=== PATIENT | female | born 1965 | race Caucasian/White ===

== ENCOUNTER 2024-05-22 16:19 | Emergency (ER) | payer BC, OTHER ==
[2024-05-22] MEDS ORDERED: Ketorolac Tromethamine 30 MG (1 mL) VIAL ONE (17:24)
[2024-05-22] MEDS ORDERED: Ondansetron PF 4 MG/2 ML Vial ONE (17:24)
[2024-05-22 17:38] LABS: Prothrombin Time 10.4 sec (9.5-12.1)
[2024-05-22 17:44] LABS: #Basophils 0.09 10x3/uL (0.0-0.2); #Eosinophils 0.47 10x3/uL (0.0-0.5); #Neutrophils 8.77 10x3/uL (1.5-8.4); %Basophils 0.6 % (0.0-2.0); %Eosinophils 3.3 % (0.0-6.0); %Lymphocytes 26.8 % (18.0-47.0); %Monocytes 6.4 % (0.0-10.0); %Neutrophils 62.4 % (40.0-75.0); Hematocrit 37.7 % (34.9-44.5); Hemoglobin 12.5 g/dL (12.0-15.5); Mean Corpuscular HGB CONC 33.2 g/dL (32.0-36.0); Mean Corpuscular Volume 84.5 fL (81.6-98.3); Mean Platelet Volume 9.5 fL (7.4-10.4); Platelet Count 334 10x3/uL (150-450); RBC Distribution Width 12.8 % (11.5-14.5); Red Blood Cell (RBC) Count 4.46 10x6/uL (3.90-5.03); White Blood Cell (WBC) Count 14.1 10x3/uL (3.5-10.5)
[2024-05-22 17:45] LABS: ALT (SGPT) 14 U/L (8-55); AST (SGOT) 11 U/L (5-34); Alkaline Phosphatase 71 U/L (40-110); Anion Gap 15 mmol/L (10-20); BUN (Urea Nitrogen) 18 mg/dL (9.8-20.1); Bilirubin, Total 0.3 mg/dL (0.2-1.2); Calc. Creatinine Clearance 0 mL/min (70-130); Calcium 9.2 mg/dL (7.8-10.44); Carbon Dioxide 23 mmol/L (22-29); Chloride 104 mmol/L (98-107); Estimated GFR 45; Globulin 2.9 g/dL (2.4-3.5); Glucose 103 mg/dL (70-105); Potassium 3.7 mmol/L (3.5-5.1); Protein, Total 6.9 g/dL (6.0-8.3); Sodium 138 mmol/L (136-145)
[2024-05-22 17:46] LABS: Troponin I Less than 0.010 ng/mL (< 0.028)
== END 2024-05-22 20:45 | disposition home or self-care (01) ==
LOC: CSHERS 16:19
DX: I95.1 Orthostatic hypotension (principal); S00.83XA Contusion of other part of head, initial encounter; M25.522 Pain in left elbow; M25.532 Pain in left wrist; N17.9 Acute kidney failure, unspecified; R29.701 NIHSS score 1; I10 Essential (primary) hypertension; E11.40 Type 2 diabetes mellitus with diabetic neuropathy, unspecified; M79.7 Fibromyalgia; F17.210 Nicotine dependence, cigarettes, uncomplicated; Z79.4 Long term (current) use of insulin; W19.XXXA Unspecified fall, initial encounter; Y93.89 Activity, other specified
CPT/HCPCS: 70450; 70486; 72125; 80053; 84484; 85025; 85610; 85730; 93005; 96374; 96375; J1885; J2405